=== PATIENT | female | born 1950 | race Two or more races ===

== ENCOUNTER 2017-12-03 09:43 | Outpatient (CLI) | payer OTHER | END 2017-12-03 11:50 | disposition home or self-care (01) | LOC: NUCLEAR 09:43 | DX: C18.9 Malignant neoplasm of colon, unspecified (principal); E11.9 Type 2 diabetes mellitus without complications; K63.9 Disease of intestine, unspecified; R10.9 Unspecified abdominal pain; R97.0 Elevated carcinoembryonic antigen [CEA] | CPT/HCPCS: 78815; A9552 ==